=== PATIENT | female | born 1980 | race Caucasian/White ===

== ENCOUNTER 2017-12-15 12:54 | Emergency (ER) | payer SELFPAY ==
[2017-12-15] MEDS ORDERED: Benzocaine 20% Topical Spray UD MUCMEM ONE (13:06)
[2017-12-15] MEDS ORDERED: Lidocaine 2% Viscous Solution 15 ML Cup PO ONE (13:06)
--- NOTE | 2017-12-15 13:12 | EDM.PDOC ---
ED HPI GENERAL MEDICAL PROBLEM - General Chief Complaint: ENT Problem Stated Complaint: RT SIDE JAW HURTS AND SWOLLEN Time Seen by Provider: 12/15/17 13:07 Source of Information: Reports: Patient History Limitations: Reports: No Limitations - History of Present Illness INITIAL COMMENTS - FREE TEXT/NARRATIVE: HISTORY AND PHYSICAL: 36-year-old female presenting with dental pain History of Present Illness: []Dental pain at numbers 29 and 30 Review of Systems: As per history of present illness and below otherwise all systems reviewed and negative. Past medical history: As per history of present illness and as reviewed below otherwise noncontributory. Surgical history: As per history of present illness and as reviewed below otherwise noncontributory. Social history: No reported history of drug or alcohol abuse. Family history: As per history of present illness and as reviewed below otherwise noncontributory. Physical exam: Alert female answering questions appropriately in full sentences. No breath noted. HEENT: Atraumatic, normocehpalic, pupils reactive, negative for conjunctival pallor or scleral icterus, mucous membranes moist, throat clear, neck supple, nontender, trachea midline. Line is swollen at teeth number 29&30. Lungs: Clear to auscultation, breath sounds equal bilaterally, chest non tender. Heart: S1S2, regular, negative for clicks, rubs, or JVD. Abdomen: Soft, nondistended, nontender. Negative for masses or hepatossplenmegaly. Negative for costovertebral tenderness. Pelvis: Stable nontender. Genitourinary: Deferred. Rectal: Deferred Extremities: Atraumatic, negative for cords or calf pain. Neurovascular unremarkable. Neuro: Awake, alert, oriented. Cranial nerves II through XII unremarkable. Cerebellum unremarkable. Motor and sensory unremarkable throughout. Exam nonfocal. Diagnostics: [] Therapeutics: []dental balls Impression: []dental abcess Plan: []Home keep appointment with your dentist as scheduled on . dental balls as directed augmentin 875mg bid for 10 days Return to the ER as directd and discussed Definitive disposition and diagnosis as appropriate pending reevaluation and review of above. Onset: Gradual Duration: Day(s): right lower tooth Pain Score (Numeric/FACES): 4 - Related Data Allergies Allergy/AdvReac Type Severity Reaction Status Date / Time ceftriaxone [From Rocephin] Allergy Anaphylactic Verified 12/15/17 13:03 Shock Iodinated Contrast- Oral and Allergy Anaphylactic Verified 12/15/17 13:03 IV Dye Shock iodine Allergy Anaphylactic Verified 12/15/17 13:03 Shock ketorolac [From Toradol] Allergy Anaphylactic Verified 12/15/17 13:03 Shock NSAIDS (Non-Steroidal Allergy Anaphylactic Verified 12/15/17 13:03 Anti-Inflamma Shock Sulfa (Sulfonamide Allergy Anaphylactic Verified 12/15/17 13:03 Antibiotics) Shock sulfamethoxazole Allergy Anaphylactic Verified 12/15/17 13:03 [From Bactrim] Shock tetracycline Allergy Anaphylactic Verified 12/15/17 13:03 Shock tramadol Allergy Anaphylactic Verified 12/15/17 13:03 Shock trimethoprim [From Bactrim] Allergy Anaphylactic Verified 12/15/17 13:03 Shock Home Meds: Home Meds Amoxicillin/Potassium Clav [Augmentin 875-125 Tablet] 1 each PO BID #20 tablet 12/15/17 [Rx] Cetirizine [ZyrTEC] 10 mg PO DAILY 12/15/17 [History] Montelukast [Singulair] 10 mg PO DAILY 12/15/17 [History] ED ROS GENERAL - Review of Systems Review Of Systems: ROS reveals no pertinent complaints other than HPI. ED EXAM, DIZZINESS - Physical Exam Exam: See Below (see dictation) Course - Vital Signs Last Recorded V/S: Last Vital Signs Temp 35.9 C 12/15/17 13:04 Pulse 71 12/15/17 13:04 Resp 20 12/15/17 13:04 BP 142/76 H 12/15/17 13:04 Pulse Ox 98 12/15/17 13:04 - Orders/Labs/Meds Orders: Active Orders 24 hr Category Date Time Status Benzocaine [Hurricaine One 20%] Med 12/15/17 13:06 Once 2 each MUCMEM ONETIME ONE Lidocaine 2% [Xylocaine 2% Viscous] Med 12/15/17 13:06 Once 15 ml PO ONETIME ONE Departure - Departure Time of Disposition: 13:11 Disposition: Home, Self-Care 01 Condition: Good Clinical Impression: Dental abscess - Discharge Information *PRESCRIPTION DRUG MONITORING PROGRAM REVIEWED*: Not Applicable *COPY OF PRESCRIPTION DRUG MONITORING REPORT IN PATIENT SELENA: Not Applicable Prescriptions: Amoxicillin/Potassium Clav [Augmentin 875-125 Tablet] 1 each PO BID #20 tablet Instructions: Dental Abscess Referrals: PCP,None [Primary Care Provider] - Additional Instructions: The following information is given to patients seen in the emergency department who are being discharged to home. This information is to outline your options for follow-up care. We provide all patients seen in our emergency department with a follow-up referral. The need for follow-up, as well as the timing and circumstances, are variable depending upon the specifics of your emergency department visit. If you don't have a primary care physician on staff, we will provide you with a referral. We always advise you to contact your personal physician following an emergency department visit to inform them of the circumstance of the visit and for follow-up with them and/or the need for any referrals to a consulting specialist. The emergency department will also refer you to a specialist when appropriate. This referral assures that you have the opportunity for followup care with a specialist. All of these measure are taken in an effort to provide you with optimal care, which includes your followup. Under all circumstances we always encourage you to contact your private physician who remains a resource for coordinating your care. When calling for followup care, please make the office aware that this follow-up is from your recent emergency room visit. If for any reason you are refused follow-up, please contact the [facility] emergency department at and asked to speak to the emergency department charge nurse. Home keep appointment with your dentist as scheduled on . dental balls as directed augmentin 875mg bid for 10 days Return to the ER as directd and discussed - My Orders Last 24 Hours: My Active Orders 12/15/17 13:06 Benzocaine [Hurricaine One 20%] 2 each MUCMEM ONETIME ONE Lidocaine 2% [Xylocaine 2% Viscous] 15 ml PO ONETIME ONE - Assessment/Plan Last 24 Hours: My Active Orders 12/15/17 13:06 Benzocaine [Hurricaine One 20%] 2 each MUCMEM ONETIME ONE Lidocaine 2% [Xylocaine 2% Viscous] 15 ml PO ONETIME ONE
== END 2017-12-15 13:30 | disposition home or self-care (01) ==
LOC: MW.ED 12:54
DX: K04.7 Periapical abscess without sinus (principal); Z91.041 Radiographic dye allergy status; Z88.2 Allergy status to sulfonamides; Z88.8 Allergy status to other drugs, medicaments and biological substances
CPT/HCPCS: 99282; A9270